=== PATIENT | female | born 1995 | race Caucasian/White ===

== ENCOUNTER 2017-07-01 16:03 | Emergency (ER) | payer BC ==
[2017-07-01] MEDS ORDERED: LO LOESTRIN FE1 TAB PO (16:13)
[2017-07-01 16:48] LABS: HEMATOCRIT 42.7 % (37.0-47.0); HEMOGLOBIN 14.2 g/dL (12.5-16.0); MEAN CELL VOLUME 91 fl (78-100); MEAN CORPUSCULAR HEMOGLOBIN 30 pg (27-31); MEAN CORPUSCULAR HGB CONC 33 g/dL (33-37); MEAN PLATELET VOLUME 10.1 fl (7.4-10.4); PLATELET COUNT 387 K/mm3 (130-400); RED BLOOD COUNT 4.71 M/mm3 (4.10-5.30); RED CELL DISTRIBUTION WIDTH 12.9 % (11.5-14.5); WHITE BLOOD COUNT 11.9 K/mm3 (4.8-10.8)
[2017-07-01 16:59] LABS: ALBUMIN 4.5 g/dL (3.5-5.0); BUN/CREATININE RATIO 23.8 (6.0-26.0); CALCIUM 9.4 mg/dL (8.4-10.2); POTASSIUM 4.1 mmol/L (3.6-5.0); TOTAL BILIRUBIN 0.3 mg/dL (0.2-1.3); TOTAL PROTEIN 8.3 g/dL (6.3-8.2)
[2017-07-01 17:10] LABS: NEUTROPHILS 82 % (42-75)
[2017-07-01 17:11] LABS: LYMPHOCYTE 13 % (20-51); MONOCYTE 5 % (3-10)
[2017-07-01] MEDS ORDERED: ZOFRAN ODT4 MG PO (18:41)
[2017-07-01 19:00] VITALS: BP 113/67
== END 2017-07-01 19:02 | disposition home or self-care (01) ==
LOC: ED 16:03
PROVIDERS: Family Medicine
DX: K29.70 Gastritis, unspecified, without bleeding (principal); F10.10 Alcohol abuse, uncomplicated
CPT/HCPCS: J2405; J7030